=== PATIENT | male | born 1940 | race Caucasian/White ===

== ENCOUNTER 2020-08-22 14:59 | Emergency (ER) | payer MEDICARE ==
[~2020-08-22] VITALS: Ht 170.2 cm; Wt 67.7 kg
--- NOTE | 2020-08-22 15:15 | PHYS DOC ---
Adult General HPI HPI Patient is a 79-year-old male who presents for right inguinal hernia. This is a chronic problem. He was seen in outpatient setting by his surgeon, Dr. Muller, for this problem. He has constipation issues and was told to utilize MiraLAX daily to help alleviate this. Bearing down and coughing make inguinal right s ided pain worse but this waxes and wanes in nature. Patient reports bulging in pubic area that is easily reproducible. He was having pain earlier this morning after straining while using the commode prompting son to bring him in for evaluation. On arrival, patient asymptomatic, denies any complaints at present. No fever, no COVID-19 contact, no other concerning signs of systemic disease Review of Systems Review of Systems Fourteen body systems of review of systems have been reviewed. See HPI for pertinent positives and negative responses, other robbins all other systems are negative, non-pertinent or non-contributory Physical Exam Physical Exam Constitutional: Pt is oriented to person, place, and time. Pt appears well-developed and well- nourished. HEENT: Head: Normocephalic and atraumatic. External ears unremarkable Conjunctivae and EOM are normal. Pupils are equal, round, and reactive to light. Oropharynx is clear and moist. No hematomas or lacerations or abrasions to face or scalp OP clear, no blood, no malocclusion, dentition intact Nares clear, no nasal septal hematoma Midface stable Neck: C-spine midline nontender, no step-offs Cardiovascular: Normal rate, regular rhythm and normal heart sounds. Pulmonary/Chest: Effort normal and breath sounds normal. No respiratory distress. No wheezes. CTA bilaterally Abdominal: Soft. Bowel sounds are normal. Pt exhibits no distension. There is no tenderness. Musculoskeletal: No bony tenderness to extremities, no deformities, full ROM extremities Chest wall stable Pelvis stable and non-tender No vertebral TTP and spine without stepoffs Palpable right inguinal hernia present that bulges with increased intra- abdominal pressure from coughing and per history straining. Easily reproducible. Neurological: Pt is alert and oriented to person, place, and time. Moving all extremities willfully, able to wiggle all fingers and toes Alert and oriented x 3 Sensation grossly intact Skin: Skin is warm and dry. No abrasions, no lacerations Psychiatric: Behavior is appropriate for situation EKG EKG [] Radiology/Procedures Radiology/Procedures [] Heart Score Risk Factors: Risk Factors: DM, Current or recent (<one month) smoker, HTN, HLP, family history of CAD, obesity. Risk Scores: Risk Factors: DM, Current or recent (<one month) smoker, HTN, HLP, family history of CAD, obesity. Course & Med Decision Making Course & Med Decision Making Reducible right inguinal hernia based on HPI and physical exam I discussed limited utility in further ER diagnostic workup and intervention given non-emergent nature of illness Patient has follow-up with surgeon in outpatient setting, I advised him to follow-up regarding this to discuss non-emergent surgical repair if it continues to be symptomatic I did offer imaging while in ER but patient declined as he was asymptomatic SRP discussed with special focus on signs and symptoms of strangulation noted, all questions and concerns addressed prior to ER departure Jenniferon Disclaimer Dragon Disclaimer This electronic medical record was generated, in whole or in part, using a voice recognition dictation system. Departure Departure: Impression: Primary Impression: Inguinal hernia, right Disposition: 01 DC HOME SELF CARE/HOMELESS Condition: GOOD Referrals: KATE CLEARY MD (PCP) Patient Instructions: Hernia, Hernia, [id number] Additional Instructions: You were seen in our ER for evaluation of right inguinal hernia. As discussed, based on comprehensive history and physical examination there is no obvious emergent and/or surgical indications as this hernia is reproducible and you are currently asymptomatic. With that said, I would continue to follow-up in outpatient setting with your already established surgeon to discuss need for nonemergent outpatient management of said hernia. Please continue to practice supportive care practices such as alleviating constipation by utilizing MiraLAX daily. If any concerning signs or symptoms present prior to outpatient follow- up please do not hesitate to come back for repeat evaluation. Is a pleasure to take care of you and I wish you the best going forward YAIR CARUSO DO Aug 22, 2020 15:15
[2020-08-22 15:24] VITALS: BP 166/77
== END 2020-08-22 15:38 | disposition home or self-care (01) ==
LOC: ER 14:59
DX: K40.90 Unilateral inguinal hernia, without obstruction or gangrene, not specified as recurrent (principal); R05 Cough
CPT/HCPCS: 99282

== ENCOUNTER → 2021-06-06 | Outpatient (CLI) | payer MEDICARE ==
--- NOTE | 2021-06-06 09:42 | RAD ---
CT of the head Axial CT images of the head were obtained without IV contrast. Comparison: None. Indication: Alzheimer's with dementia Findings: No mass, mass effect or hemorrhage is seen. The ventricles and cortical sulci are mildly enlarged. Th ere are diffuse periventricular white matter hypodensities. The basilar cisterns are unremarkable. No midline shift is noted. There is no intra or extra axial fluid collection. There is diffuse calcification of the bilateral in ternal carotid arteries and vertebral arteries. No bony or soft tissue abnormality is seen. The visualized paranasal sinuses are clear. Impression: 1. No acute mass, mass effect or hemorrhage. 2. Periventricular white matter ischemic change. Age appropriate brain atrophy. 3. 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 Exposure: One or more of the following individualized dose reduction techniques were utilized for thi s examination: 1. Automated exposure control 2. Adjustment of the mA and/or kV according to patient size 3. Use of iterative reconstruction technique Electronically signed by: Johnson Berman MD (06/06/2021 9:40 AM) [id number]
== END ==
LOC: CT 09:20
PROVIDERS: ATTEND Family Medicine
DX: I67.82 Cerebral ischemia (principal); G31.89 Other specified degenerative diseases of nervous system; I67.2 Cerebral atherosclerosis; G30.9 Alzheimer's disease, unspecified
CPT/HCPCS: 70450